=== PATIENT | female | born 1975 | race Caucasian/White ===

== ENCOUNTER 2024-11-09 17:39 | Emergency (ER) | payer OTHER ==
[~2024-11-09] VITALS: Ht 160 cm; Wt 125.6 kg
[2024-11-09] MEDS ORDERED: HYDROCHLOROTH12.5 M1 PO (18:27)
[2024-11-09] MEDS ORDERED: ZOLPIDEM TARTRAT5 MG PO (18:28)
[2024-11-09] MEDS ORDERED: LISINOPRIL40 MG PO (18:28)
[2024-11-09] MEDS ORDERED: LAMOTRIGINE150 MG PO (18:29)
[2024-11-09] MEDS ORDERED: PROPRANOLOL HCL10 MG PO (18:29)
[2024-11-09] MEDS ORDERED: SERTRALINE HCL100 MG PO (18:29)
[2024-11-09] MEDS ORDERED: BUPROPION HCL200 MG PO (18:29)
[2024-11-09] MEDS ORDERED: TRAZODONE HCL50 MG PO (18:30)
[2024-11-09] MEDS ORDERED: DIVALPROEX SOD125 M1 PO (18:31)
[2024-11-09 18:40] LABS: BASOPHILS 0.5 % (0-2); EOSINOPHILS 0.6 % (0-6); HEMATOCRIT 40.5 % (35.0-50.0); HEMOGLOBIN 13.9 g/dL (12.0-18.0); LYMPHOCYTES 32.7 % (24-44); MCH 30.9 (27-36); MCHC 34.3 g/dl (30-36); MONOCYTES 7.4 % (0-12); NEUTROPHILS 58.8 % (39-80); PLATELET COUNT 282 K/uL (140-440); RDW 13.8 (10.5-15.0)
[2024-11-09 19:04] LABS: ACETAMINOPHEN 0 ug/mL (10-30); ALBUMIN 3.3 g/dL (3.4-5.0); ALBUMIN/GLOBULIN RATIO 0.73 (1.1-2.4); ALCOHOL, MEDICAL <3 ng/dL (<3); ALKALINE PHOSPHATASE 56 U/L (46-116); ALT (SGPT) 23 U/L (14-59); ANION GAP 9.4 (7-21); AST (SGOT) 15 U/L (15-37); BILIRUBIN, TOTAL 0.4 ng/dL (0.2-1.0); BUN/CREATININE RATIO 13.39 (6.0-28.6); CALCIUM 9.6 mg/dL (8.5-10.1); CARBON DIOXIDE 33 mmol/L (21-32); CHLORIDE 98 mmol/L (98-107); CREATININE, SERUM 1.12 mg/dL (0.55-1.02); GLOMERULAR FILTRATION RATE,EST 60 mL/min (>60); POTASSIUM 3.4 mmol/L (3.5-5.1); PROTEIN, TOTAL 7.8 g/dL (6.4-8.2); SALICYLATE 1.3 mg/dL (2.8-20.0); TSH, 3RD GENERATION 5.286 uIU/mL (0.358-3.740); UREA NITROGEN 15 mg/dL (7-18)
[2024-11-09 19:37] LABS: BILIRUBIN, URINE POSITIVE (negative); BLOOD/HGB, URINE MODERATE (Negative); KETONE, URINE TRACE (Negative); LEUK ESTERASE, URINE NEGATIVE (negative); NITRITE, URINE NEGATIVE (negative); PH, URINE 5.5 (5-7)
[2024-11-09 19:42] LABS: BACTERIA, URINE 2+ /hpf (negative); CASTS, URINE NONE SEEN \\lpf; COLLECTION TYPE, URINE CLEAN CATCH; CRYSTALS, URINE NONE SEEN (0-1+); EPITHELIAL CELLS, URINE SQUAMOUS 4+ /lpf (0-1+); RED BLOOD CELLS, URINE 0-1 /hpf (0-5); REFLEX CULTURE, URINE No (No); WHITE BLOOD CELLS, URINE 0-1 /HPF (0-5)
[2024-11-09 19:56] LABS: AMPHETAMINES, URINE NEGATIVE (NEGATIVE); BARBITURATES, URINE NEGATIVE (NEGATIVE); BENZODIAZEPINE, URINE NEGATIVE (NEGATIVE); BUPRENORPHINE, URINE NEGATIVE (NEGATIVE); CANNABINOID, URINE NEGATIVE (NEGATIVE); COCAINE, URINE NEGATIVE (NEGATIVE); ECSTASY, URINE POSITIVE (NEGATIVE); FENTANYL, URINE NEGATIVE (NEGATIVE); METHADONE, URINE NEGATIVE (NEGATIVE); OPIATES, URINE NEGATIVE (NEGATIVE); OXYCODONE, URINE NEGATIVE (NEGATIVE); PHENCYCLIDINE, URINE NEGATIVE (NEGATIVE)
[2024-11-09 20:24] VITALS: BP 103/66
--- NOTE | 2024-11-10 18:13 | EKG ---
[facility] [address] [place], [place] [address] Signed Normal sinus rhythm Normal ECG No previous ECGs available Confirmed by Larissa Woods MD ([id number]) on 11/10/2024 6:13:48 PM Electronically Signed By: LARISSA WOODS MD 11/10/241812 PATIENT NAME: ERIKA GARNICA Electrocardiogram DATE OF : 71 PHYSICIAN: LARISSA WOODS MD REPORT #: [id number] REPORT IS CONFIDENTIAL AND NOT TO BE RELEASED WITHOUT AUTHORIZATION
== END 2024-11-09 20:23 | disposition home or self-care (01) ==
LOC: ED 17:39
PROVIDERS: Emergency Medicine
DX: T42.6X2A Poisoning by other antiepileptic and sedative-hypnotic drugs, intentional self-harm, initial encounter (principal); T46.4X2A Poisoning by angiotensin-converting-enzyme inhibitors, intentional self-harm, initial encounter; R53.83 Other fatigue; S00.12XA Contusion of left eyelid and periocular area, initial encounter; W19.XXXA Unspecified fall, initial encounter; F41.9 Anxiety disorder, unspecified; I10 Essential (primary) hypertension; F32.A Depression, unspecified; Z79.899 Other long term (current) drug therapy
CPT/HCPCS: 36415; 70450; 80053; 80307; 81001; 84443; 84703; 85025; 93005; 93010; 99285-25; G0480